=== PATIENT | male | born 1970 | race Caucasian/White ===

== ENCOUNTER 2024-01-15 06:19 | Day surgery (SDC) | payer BC ==
[2024-01-15] MEDS ORDERED: Lidocaine 2% 5 ML SDV ONE (06:55)
[2024-01-15] MEDS ORDERED: Ondansetron 4 MG/2 ML SDV ONE (06:55)
[2024-01-15] MEDS ORDERED: propofoL 50 ML ONE (06:55)
[2024-01-15] MEDS ORDERED: Water For Injection, Sterile 20 ML ONE (07:03)
[2024-01-15] MEDS: Lactated Ringers 1,000 ML IV SCH (07:14)
[2024-01-15] MEDS ORDERED: Lactated Ringers 1,000 ML IV SCH (08:30)
== END 2024-01-15 08:55 | disposition home or self-care (01) ==
LOC: MW.SDS 06:19
PROVIDERS: ATTEND Surgery
DX: Z12.11 Encounter for screening for malignant neoplasm of colon (principal); K57.30 Diverticulosis of large intestine without perforation or abscess without bleeding; E11.9 Type 2 diabetes mellitus without complications; I25.2 Old myocardial infarction; Z79.84 Long term (current) use of oral hypoglycemic drugs; Z79.899 Other long term (current) drug therapy
CPT/HCPCS: 45378; J2405; J2704; J7120; J3490